=== PATIENT | female | born 1960 | race Caucasian/White ===

== ENCOUNTER 2016-12-07 12:00 | Inpatient (IN) | payer BC ==
[~2016-12-07] VITALS: Ht 165.1 cm; Wt 59.5 kg
[2016-12-07 10:59] VITALS: BP 100/52; RESP 18
[~2016-12-07 12:00] MED LIST: ASPI-535 PO; EZET1TAB9; LORA-407; OMEP10CA4
[2016-12-07] MEDS ORDERED: ASPIRIN 325 MG TAB PO STA (12:01)
[2016-12-07 12:30] LABS: BASOPHILS % 0.7 % (0.0-2.0); EOSINOPHILS # 0.1 10^3/ul (0.0-0.5); EOSINOPHILS % 1.6 % (0.0-7.0); HEMATOCRIT 37.7 % (37.0-47.0); HEMOGLOBIN 12.9 g/dl (12.0-16.0); LYMPHOCYTES # 1.8 10^3/ul (0.8-2.9); MEAN CORPUSCULAR HEMOGLOBIN 29.9 pg (29.0-33.0); MEAN CORPUSCULAR HGB CONC 34.2 g/dl (32.0-37.0); MEAN CORPUSCULAR VOLUME 87.5 fl (82.0-101.0); MEAN PLATELET VOLUME 10.6 fl (7.4-10.4); MONOCYTE # 0.4 10^3/ul (0.3-0.9); MONOCYTES % 6.7 % (0.0-11.0); NEUTROPHILS % 58.6 % (39.0-77.0); PLATELET COUNT 246 10^3/UL (140-415); RED BLOOD COUNT 4.31 10^6/ul (4.20-5.40); RED CELL DISTRIBUTION WIDTH 13.2 % (11.5-14.5); WHITE BLOOD COUNT 5.7 10^3/ul (4.8-10.8)
--- NOTE | 2016-12-07 12:46 | RADRPT ---
PROCEDURE: CT Brain without contrast. CLINICAL INDICATION: Code stroke TECHNIQUE: A CT of the brain was performed on a GE [id number] 64-slice CT scanner utilizing axial imaging from the skull base through the vertex without IV contrast. Multiplanar reformatted images were made. Images were reviewed on a PACS workstation. The CTDIvol is 45.01 mGy and the DLP is 630 .20 mGycm. One of the following 3 dose reduction techniques were used: Automated exposure control; adjustment of the mA and/or kV according to patient size; or use of iterative reconstruction technique. COMPARISON: No relevant priors FINDINGS: There is no intracranial hemorrhage, mass effect, or midline shift. No extra-axial fluid collection is seen. The ventricles and sulci are normal in size and configuration. The density of the brain is normal, and the johnson white matter differentiation appears well-preserved. The visualized scalp and calvarium are normal. The bilateral orbits are normal. The bilateral para nasal sinuses, mastoid air cells and middle ear cavities are clear. IMPRESSION: 1. No evidence of acute intracranial hemorrhage, infarcts, or acute intracranial pathology. 2. Normal noncontrast head CT. A call report was made to Kat Yang at 12/07/2016 12:44:48 PM following the completion of the examination by the undersigned. RPTAT: HDC .Jesenia Roque MD, MD Date Time Electronically viewed and signed by .Jesenia Roque MD, MD on 12/07/2016 12:45 .C/
[2016-12-07 12:51] LABS: ANION GAP 18 (8-16); BLOOD UREA NITROGEN 21 mg/dl (7-20); CALCIUM 9.8 mg/dl (8.4-10.2); CARBON DIOXIDE 27 mmol/L (21-31); CHLORIDE 100 mmol/L (97-110); CREATININE 0.64 mg/dl (0.44-1.00); GLUCOSE 105 mg/dl (70-220); POTASSIUM 3.6 mmol/L (3.5-5.1); SODIUM 141 mmol/L (135-144)
[2016-12-07 13:04] LABS: TROPONIN-I < 0.012 ng/ml (0.00-0.12)
--- NOTE | 2016-12-07 13:37 | RADRPT ---
PROCEDURE: XR Chest. CLINICAL INDICATION: Dyspnea and chest pain TECHNIQUE: AP Portable chest. COMPARISON: 10/19/2015 chest x-ray FINDINGS: The soft tissues and bones are normal. No focal infiltrates, masses, or effusions are noted. The m ediastinum and heart are normal. No pneumothorax is present. IMPRESSION: 1. No radiographic evidence for acute cardiopulmonary disease RPTAT: HDC .Jesenia Roque MD, MD Date Time Electronically viewed and signed by .Jesenia Roque MD, on 12/07/2016 13:37 .C/
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
[2016-12-07] MEDS ORDERED: ASPI-664 PO (14:07)
[2016-12-07] MEDS ORDERED: EZET1TAB9 PO (14:13)
[2016-12-07] MEDS ORDERED: LORA10CA PO (14:14)
[2016-12-07] MEDS ORDERED: OMEP10CA4 PO (14:15)
[2016-12-07] MEDS ORDERED: ACETAMINOPHEN 325 MG TAB PO PRN (16:00)
[2016-12-07] MEDS ORDERED: ONDANSETRON 4 MG INJ IV PRN ×2 (16:00→16:30)
[2016-12-07] MEDS ORDERED: DOCUSATE SODIUM 100 MG CAP PO PRN (16:30)
[2016-12-07] MEDS ORDERED: MAGNESIUM HYDROXIDE 30ML CUP PO PRN (16:30)
[2016-12-07] MEDS ORDERED: NACL 0.9% 3 ML SYG IV SCH (16:30)
[2016-12-07] MEDS ORDERED: BISACODYL (EC) 5 MG TAB PO PRN (16:30)
[2016-12-07 18:30] VITALS: TEMP 98.6
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
[2016-12-07 20:33] LABS: CREATINE KINASE 91 IU/L (23-200)
--- NOTE | 2016-12-07 20:45 | QN ---
Documentation Comment [id number] WENCESLAO KHAN MD Dec 07, 2016 20:45
[2016-12-07 20:46] LABS: CK-MB 0.72 ng/ml (0.0-2.4)
[2016-12-07 20:48] LABS: TROPONIN-I < 0.012 ng/ml (0.00-0.12)
[2016-12-07 22:00] VITALS: BP 123/76; RESP 18
[2016-12-07 22:23] VITALS: PULSE 64
[2016-12-07 22:31] VITALS: Ht 165.1 cm; Wt 59.5 kg
--- NOTE | 2016-12-07 22:31 | HP ---
DATE OF ADMISSION: 12/07/2016 HISTORY OF PRESENT ILLNESS: The patient is a 56-year-old female with a history of anxiety, history of questionable CAD who presented with left-sided weakness. The patient has been seen by telestroke neurologist and the patient claims that her symptoms are getting better. The patient's blood pressure is 120/70, hematocrit 37.7, sodium 141, potassium 3.5, BUN 21. Chest x-ray, no radiographic evidence for acute cardiopulmonary process. Brain CT scan, no evidence of acute subarachnoid hemorrhage or for fluid-attenuated intracerebral pathology. PAST MEDICAL HISTORY: Positive for CAD, dyslipidemia, dyspepsia. ALLERGIES: HISTORY NEGATIVE. MEDICATIONS: History for aspirin, Zetia, simvastatin, FAMILY HISTORY: Positive for hypertension. SOCIAL HISTORY: Negative. REVIEW OF SYSTEMS: HEENT: Unremarkable. RESPIRATORY: Unremarkable. CARDIOVASCULAR: Unremarkable. GASTROINTESTINAL: Unremarkable. EXTREMITIES: As mentioned above, left-sided weakness, getting better. NEUROLOGIC: As mentioned above. PHYSICAL EXAMINATION: GENERAL APPEARANCE: The patient is awake, alert, not in any acute respiratory distress with good pulse. VITAL SIGNS: Stable. HEENT: Head is atraumatic, normocephalic. Pupils are equal and reactive to light. NECK: Supple. There is no JVD. LUNGS: Clear. CARDIOVASCULAR: S1, S2 are normal. ABDOMEN: Soft, nontender. Bowel sounds positive. No palpable mass or hepatosplenomegaly. No guarding or rebound tenderness. EXTREMITIES: There is no cyanosis, clubbing or edema. NEUROLOGIC: The patient is awake, moving both upper and lower extremities. DATA: Laboratory data as mentioned above. IMPRESSION: 1. The patient has history of coronary artery disease. 2. Rule out transient ischemic attack, rule out cerebrovascular accident. 3. History of dyslipidemia. PLAN: 1. Continue home medications. 2. The patient will have 2D echocardiogram, carotid duplex scan, and neurology consultation. 3. Continue aspirin. Orders were done. Dictated By: Jose Miguel Cardoso MD /jody/deysi /Document#: [id number] RENATA
[2016-12-07] MEDS: SOD CHLORIDE 0.45% 1,000 ML IV SCH (23:55)
[2016-12-08] VITALS (13 sets, daily range): BP systolic 92–123; BP diastolic 52–76; PULSE 50–67; RESP 18–20
--- NOTE | 2016-12-08 00:09 | RADRPT ---
PROCEDURE: US Carotids. CLINICAL INDICATION: Transient ischemic attack TECHNIQUE: Multiple sonographic of the carotid arteries were obtained utilizing johnson scale imaging . Color and Doppler imaging was performed. The images were reviewed on a PACS workstation. COMPARISON: No prior studies are available for comparison. FINDINGS: RIGHT: CCA 92 cm/sec Prox ICA 67 cm/sec Mid ICA 59 cm/sec Dist ICA 85 cm/sec ECA 110 cm/sec ICA/CCA: 0.9 LEFT: CCA 97 cm/sec Prox ICA 61 cm/sec Mid ICA71 cm/sec Dist ICA 88 cm/sec ECA 71 cm/sec ICA/CCA: 0.9 Antegrade flow is seen within the vertebral arteries bilaterally. No significant plaque is seen with in the bilateral carotid bulbs. There is no evidence for hemodynamically significant stenosis or oc clusion is identified. IMPRESSION: 1. No evidence for hemodynamically significant stenosis - validated velocity measurements with osmani ographic measurements, velocity criteria are extrapolated from diameter data as defined by the Socie ty of Radiologists in Ultrasound Consensus Conference Radiology 2003; 229;340-346. This study does indirectly reference the measurement of the distal ICA diameter as the denominator for stenosis avelino urement. 2. Antegrade flow seen within the vertebral arteries bilaterally. RPTAT: HMVK .Oscar Hudson MD, Date Time Electronically viewed and signed by .Oscar Hudson MD, on 12/08/2016 00:08 .K/
[2016-12-08] MEDS: PANTOPRAZOLE (EC) 40 MG TAB PO SCH (06:15)
[2016-12-08] MEDS: LORATADINE 10 MG TAB PO SCH (08:50)
[2016-12-08] MEDS: HYDROCODONE/APAP (5/325) TAB PO PRN ×2 (08:51→18:20)
[2016-12-08] MEDS: ASPIRIN (EC) 81 MG TAB PO SCH (08:51)
[2016-12-08] MEDS: ENOXAPARIN 40 MG/0.4 ML SYG SC SCH (08:58)
[2016-12-08 10:29] LABS: CHOL/HDL RATIO 4.8 RATIO
--- NOTE | 2016-12-08 10:47 | PN ---
Date/Time of Note Date/Time of Note DATE: 12/08/16 TIME: 10:42 Assessment/Plan VTE Prophylaxis VTE Prophylaxis Intervention: LMWH Lines/Catheters IV Catheter Type (from Nrs): Saline Lock Assessment/Plan Chief Complaint/Hosp Course 56 y/o with 1. Left sided hemiparesis vs Stroke mimic 2. Hypercholesteremia 3 h/o CAD Plan - on ASA 81 mg - CHD pending - MRI of brain - PT/OT/Speech - ECHO pending with bubble( only bradycardia noted on Telemetry) - Carotid U/S neg for stenosis - GI/DVT prophylaxis - Neuro consult Dr Wren Problems: Subjective 24 Hr Interval Summary Free Text/Dictation Feels that left leg weakness has improved but not the left arm weakness Exam/Review of Systems Vital Signs Vitals Vital Signs Date Time Temp Pulse Resp B/P Pulse Ox O2 Delivery O2 Flow Rate FiO2 12/08/16 08:33 67 12/08/16 07:51 97.6 20 109/66 97 12/07/16 20:30 Room Air Intake and Output 12/07/16 12/07/16 12/08/16 15:00 23:00 07:00 Intake Total 120 ml 830 ml Balance 120 ml 830 ml Exam Gen:awake,alert Neck:supple CVS:bradycardia Lungs:clear to aucultate Abdomen:soft, non tender Neuro left leg 4/5 , left arm 2/5 No facial droop Results Result Diagram: 12/07/16 1220 12/07/16 1220 Results 24 hrs Laboratory Tests Test 12/07/16 12:20 12/07/16 20:00 12/08/16 09:15 White Blood Count 5.7 # Red Blood Count 4.31 Hemoglobin 12.9 Hematocrit 37.7 Mean Corpuscular Volume 87.5 Mean Corpuscular Hemoglobin 29.9 Mean Corpuscular Hemoglobin Concent 34.2 Red Cell Distribution Width 13.2 Platelet Count 246 Mean Platelet Volume 10.6 H Neutrophils % 58.6 Lymphocytes % 32.0 Monocytes % 6.7 Eosinophils % 1.6 Basophils % 0.7 Nucleated Red Blood Cells % 0.0 Neutrophils # (Manual) 3.3 Lymphocytes # 1.8 Monocytes # 0.4 Eosinophils # 0.1 Basophils # 0.0 Nucleated Red Blood Cells # 0.0 Sodium Level 141 Potassium Level 3.6 Chloride Level 100 Carbon Dioxide Level 27 Anion Gap 18 H Blood Urea Nitrogen 21 H Creatinine 0.64 Glucose Level 105 Hemoglobin A1c 5.8 Calcium Level 9.8 Troponin I < 0.012 < 0.012 Creatine Kinase 91 Creatine Kinase Index 0.8 Creatinine Kinase MB (Mass) 0.72 Triglycerides Level 114 Cholesterol Level 199 LDL Cholesterol, Calculated 135 HDL Cholesterol 41 Cholesterol/HDL Ratio 4.8 Medications Medications Current Medications Aspirin (Halfprin) 81 mg DAILY PO Last administered on 12/08/16 08:51; Admin Dose 81 MG; Start 12/08/16 at 09:00 Loratadine 10 mg 10 mg DAILY PO Last administered on 12/08/16 08:50; Admin Dose 10 MG; Start 12/08/16 at 09:00 Sodium Chloride (1/2 NS) 1,000 ml @ 40 mls/hr Q24H IV Last administered on 23:55; Admin Dose 40 MLS/HR; Start 12/07/16 at 16:19 Ondansetron HCl (Zofran Inj) 4 mg Q6H PRN IV NAUSEA AND/OR VOMITING; Start at 16:30 Acetaminophen/ Hydrocodone Bitart ([place] (5/325)) 1 tab Q6H PRN PO MODERATE PAIN LEVEL 4-6 Last administered on 12/08/16 08:51; Admin Dose 1 TAB; Start at 16:30 Docusate Sodium (Colace) 100 mg Q12H PRN PO CONSTIPATION; Start 12/07/16 at 16: 30 Magnesium Hydroxide (Milk Of Mag) 30 ml DAILY PRN PO CONSTIPATION; Start at 16:30 Bisacodyl (Dulcolax) 5 mg DAILY PRN PO CONSTIPATION; Start 12/07/16 at 16:30 Pantoprazole (Protonix Tab) 40 mg DAILY@06 PO Last administered on 12/08/16 06 :15; Admin Dose 40 MG; Start 12/08/16 at 06:00 Enoxaparin Sodium (Lovenox) 40 mg DAILY SC Last administered on 12/08/16 08:58 ; Admin Dose 40 MG; Start 12/08/16 at 09:00 BRIANNE BAHENA MD Dec 08, 2016 10:47
--- NOTE | 2016-12-08 13:23 | RADRPT ---
Echocardiogram Report ADDENDUM Patient Name: JANNY REDDY Gender: Female Date: 1960 Study Date: 08-Dec-2016 Well Cleaner: SINDY ADAME Location: [id number] Ref. Physician: WENCESLAO KHAN Quality: Good Procedures: Transthoracic echocardiogram with complete 2D, M-Mode, and doppler examination. Indications: Transient Ischemic Attack. 2D/M Mode Doppler Measurement Value Normal Ranges Measurement Value Normal Ranges LVIDd 2D 3.9 3.5 - 5.6 cm AV Peak Lam 1.1 m/sec LVIDs 2D 2.1 2.1 - 4.1 cm AV Peak PG 4.4 mmHg LVPWd 2D 1.0 0.6 - 1.1 cm LVOT Peak Lam 0.8 m/sec IVSd 2D 1.0 0.6 - 1.1 cm LVOT Peak PG 2.3 mmHg AoR Diam 2D 2.9 2.0 - 3.7 cm MV E Peak Lam 0.7 m/sec EDV 2D 66.9 cm3 MV A Peak Lam 0.5 m/sec ESV 2D 8.9 cm3 MV E/A 1.5 LA Dimen 2D 2.9 2.3 - 4.0 cm MV Decel Time 187 msec MV Decel Humphreys 4 MV E/A 1.5 TR Peak Lam 2.1 m/sec TR Peak PG 17.9 mmHg RVSP 20.0 mmHg Findings Left Ventricle: Lower limits of normal systolic function. Ejection fraction is visually estimated at 5055 %. Abnormal Diastolic Function. Right Ventricle: Normal right ventricular size. Normal right ventricular systolic function. Left Atrium: The left atrium is normal in size. Right Atrium: The right atrium is normal in size. Mitral Valve: Normal appearance of the mitral valve. Normal appearance and function of the mitral valve with trace physiologic regurgitation. Trace mitral regurgitation. Aortic Valve: Normal appearance of the aortic valve. No significant aortic stenosis or insufficiency. Tricuspid Valve: Normal appearance and function of the tricuspid valve with trace physiologic regurgitation. Normal right ventricular systolic pressure. Estimated peak PA systolic pressure 23 mmHg. Pulmonic Valve: Normal pulmonic valve appearance. Pericardium: Normal pericardium with no significant pericardial effusion. Aorta: Normal aortic root. IVC: Normal size and normal respiratory collapse consistent with normal right atrial pressure. Conclusions 1.Lower limits of normal systolic function. Ejection fraction is visually estimated at 50-55 %. Abnormal Diastolic Function. 2.Normal appearance of the mitral valve. Normal appearance and function of the mitral valve with trace physiologic regurgitation. Trace mitral regurgitation. 3.Normal appearance and function of the tricuspid valve with trace physiologic regurgitation. Normal right ventricular systolic pressure. Estimated peak PA systolic pressure 23 mmHg. 4.No bubble study performed for interpretation. Electronically Signed By: Missael Pugh 08-Dec-2016 13:32:00 -0700 [ADDENDUM] Patient Name: JANNY REDDY Study Date: 08-Dec-2016 [id number]
[2016-12-08] MEDS: SOD CHLORIDE 0.45% 1,000 ML IV SCH (18:15)
--- NOTE | 2016-12-08 20:04 | CONS ---
Date/Time of Note Date/Time of Note DATE: 12/08/16 TIME: 19:56 Assessment/Plan Assessment/Plan Chief Complaint/Hosp Course Neuro exam: AOx3, fluent speech, CN left facial numbness to temperature, pain, rest CN int, perrl 4-2 mm Motor LUE 4-3+/5 min pronator drift Sensory decreased on th eleft DTR 2, no babibski, coord OK RUE Gait was not assessed A/P: Acute ischemic CVA. MRI pending. ASA, statin. Keep euglycemic, OK elevated BP in th efirst few days up to 220/120 then obtain control. PT/OT Problems: Consultation Date/Type/Reason Admit Date/Time Dec 07, 2016 at 15:51 Type of Consultation: neurology Reason for Consultation left sided weakness and numbness Hx of Present Illness 56 y/o with PMHx of chronic migraine headache without aura x decades, almost daily; developed SOB and left sided numbness and weakness yesterday, better by now. Car US negative, C T head, ECHO WNL, MRI done no report Respiratory: shortness of breath Neurologic: focal-weakness Past Medical History Medical History: no pertinent history, angina, diabetes (no dm, hypothyroid), hypothyroid, other (migraines without aura almost daily x decades) Family History Significant Family History: no pertinent family hx Social History Alcohol Use: none Smoking Status: Former smoker Exam/Review of Systems Vital Signs Vitals Vital Signs Date Time Temp Pulse Resp B/P Pulse Ox O2 Delivery O2 Flow Rate FiO2 12/08/16 16:55 55 12/08/16 15:50 97.8 20 93/55 95 12/07/16 20:30 Room Air Intake and Output 12/07/16 12/07/16 12/08/16 15:00 23:00 07:00 Intake Total 120 ml 830 ml Balance 120 ml 830 ml Exam Constitutional: alert, oriented, well developed Psych: nl mood/affect, no complaints Head: atraumatic, normocephalic Eyes: EOMI, nl conjunctiva ENMT: nl external ears & nose Neck: non-tender, supple Respiratory: clear to auscultation, normal air movement Cardiovascular: nl pulses, regular rate and rhythm Gastrointestinal: non-tender, soft Musculoskeletal: nl extremities to inspection Results Result Diagram: 12/07/16 1220 12/07/16 1220 Results 24 hrs Laboratory Tests Test 12/07/16 20:00 12/08/16 09:15 Creatine Kinase 91 Creatine Kinase Index 0.8 Creatinine Kinase MB (Mass) 0.72 Troponin I < 0.012 Triglycerides Level 114 Cholesterol Level 199 LDL Cholesterol, Calculated 135 HDL Cholesterol 41 Cholesterol/HDL Ratio 4.8 Thyroid Stimulating Hormone (TSH) 3.490 Medications Medications Current Medications Aspirin (Halfprin) 81 mg DAILY PO Last administered on 12/08/16 08:51; Admin Dose 81 MG; Start 12/08/16 at 09:00 Loratadine 10 mg 10 mg DAILY PO Last administered on 12/08/16 08:50; Admin Dose 10 MG; Start 12/08/16 at 09:00 Sodium Chloride (1/2 NS) 1,000 ml @ 40 mls/hr Q24H IV Last administered on 18:15; Admin Dose 40 MLS/HR; Start 12/07/16 at 16:19 Ondansetron HCl (Zofran Inj) 4 mg Q6H PRN IV NAUSEA AND/OR VOMITING; Start at 16:30 Acetaminophen/ Hydrocodone Bitart ([place] (5/325)) 1 tab Q6H PRN PO MODERATE PAIN LEVEL 4-6 Last administered on 12/08/16 18:20; Admin Dose 1 TAB; Start at 16:30 Docusate Sodium (Colace) 100 mg Q12H PRN PO CONSTIPATION; Start 12/07/16 at 16: 30 Magnesium Hydroxide (Milk Of Mag) 30 ml DAILY PRN PO CONSTIPATION; Start at 16:30 Bisacodyl (Dulcolax) 5 mg DAILY PRN PO CONSTIPATION; Start 12/07/16 at 16:30 Pantoprazole (Protonix Tab) 40 mg DAILY@06 PO Last administered on 12/08/16 06 :15; Admin Dose 40 MG; Start 12/08/16 at 06:00 Enoxaparin Sodium (Lovenox) 40 mg DAILY SC Last administered on 12/08/16 08:58 ; Admin Dose 40 MG; Start 12/08/16 at 09:00 PAM GONSALES MD Dec 08, 2016 20:04
[2016-12-08] MEDS: ATORVASTATIN 40 MG TAB PO SCH (20:24)
[2016-12-09] VITALS (11 sets, daily range): BP systolic 93–118; BP diastolic 59–70; PULSE 49–58; RESP 17–20
[2016-12-09] MEDS: PANTOPRAZOLE (EC) 40 MG TAB PO SCH (05:21)
[2016-12-09] MEDS: LORATADINE 10 MG TAB PO SCH (09:03)
[2016-12-09] MEDS: ASPIRIN (EC) 81 MG TAB PO SCH (09:03)
[2016-12-09] MEDS: HYDROCODONE/APAP (5/325) TAB PO PRN ×2 (09:03→23:08)
[2016-12-09] MEDS: ENOXAPARIN 40 MG/0.4 ML SYG SC SCH (09:09)
--- NOTE | 2016-12-09 12:38 | RADRPT ---
PROCEDURE: MRI Brain without contrast. CLINICAL INDICATION: Stroke, neurologic deficit TECHNIQUE: Multiplanar MRI of the brain without contrast was performed on a 3.0 T scanner with the following sequences obtained: T1-weighted, T2-weighted/FLAIR, diffusion weighted (with ADC map), GR E. COMPARISON: CT brain 12/07/2016 FINDINGS: No acute/recent ischemic infarction or intracranial hemorrhage / blood degradation products are iden tified. No extra-axial fluid collection is seen. There is no mass effect. No midline shift is identified. The ventricles and sulci are within normal limits for size and configuration. A couple of minimal of increased T2-weighted FLAIR signal intensity are seen in the deep white matte r which are nonspecific. Flow voids are identified in the proximal intracranial arteries and dural sinuses suggesting patency . The mastoid air cells and paranasal sinuses are grossly clear. IMPRESSION: 1. No evidence of acute intracranial pathology. 2. Minimal nonspecific white matter changes, possibly reflecting chronic small vessel ischemic vásquez ges. RPTAT: VV .Esdras Porter MD, MD Date Time Electronically viewed and signed by .Esdras Porter MD, on 12/09/2016 12:38 .O/
--- NOTE | 2016-12-09 13:48 | PN ---
Date/Time of Note Date/Time of Note DATE: 12/09/16 TIME: 13:46 Assessment/Plan VTE Prophylaxis VTE Prophylaxis Intervention: LMWH Lines/Catheters IV Catheter Type (from Nrs): Peripheral IV Assessment/Plan Chief Complaint/Hosp Course 56 y/o with 1.Left sided hemiparesis vs Stroke mimic 2. Hypercholesteremia 3 h/o CAD Plan - on ASA 81 mg / statin - MRI of brain negative for intracranial pathology - Pending PT/OT/Speech - ECHO negative for thrombus - Carotid U/S neg for stenosis - GI/DVT prophylaxis - Spoke to Dr Wren Problems: Subjective 24 Hr Interval Summary Free Text/Dictation Pt says that weakness in left arm is improving Exam/Review of Systems Vital Signs Vitals Vital Signs Date Time Temp Pulse Resp B/P Pulse Ox O2 Delivery O2 Flow Rate FiO2 12/09/16 12:24 55 12/09/16 12:11 98.5 18 93/62 97 12/07/16 20:30 Room Air Intake and Output 12/08/16 12/08/16 12/09/16 15:00 23:00 07:00 Intake Total 1440 ml 720 ml Balance 1440 ml 720 ml Exam Constitutional: alert Head: normocephalic Eyes: nl conjunctiva Neck: supple Respiratory: clear to auscultation Cardiovascular: regular rate and rhythm Gastrointestinal: non-tender, soft Musculoskeletal: nl extremities to inspection Neurological: focal weakness, nl speech, other (weakness on left arm improving) Results Result Diagram: 12/07/16 1220 12/07/16 1220 Medications Medications Current Medications Aspirin (Halfprin) 81 mg DAILY PO Last administered on 12/09/16 09:03; Admin Dose 81 MG; Start 12/08/16 at 09:00 Loratadine 10 mg 10 mg DAILY PO Last administered on 12/09/16 09:03; Admin Dose 10 MG; Start 12/08/16 at 09:00 Sodium Chloride (1/2 NS) 1,000 ml @ 40 mls/hr Q24H IV Last administered on 18:15; Admin Dose 40 MLS/HR; Start 12/07/16 at 16:19 Ondansetron HCl (Zofran Inj) 4 mg Q6H PRN IV NAUSEA AND/OR VOMITING; Start at 16:30 Acetaminophen/ Hydrocodone Bitart ([place] (5/325)) 1 tab Q6H PRN PO MODERATE PAIN LEVEL 4-6 Last administered on 12/09/16 09:03; Admin Dose 1 TAB; Start at 16:30 Docusate Sodium (Colace) 100 mg Q12H PRN PO CONSTIPATION; Start 12/07/16 at 16: 30 Magnesium Hydroxide (Milk Of Mag) 30 ml DAILY PRN PO CONSTIPATION; Start at 16:30 Bisacodyl (Dulcolax) 5 mg DAILY PRN PO CONSTIPATION; Start 12/07/16 at 16:30 Pantoprazole (Protonix Tab) 40 mg DAILY@06 PO Last administered on 12/09/16 05 :21; Admin Dose 40 MG; Start 12/08/16 at 06:00 Enoxaparin Sodium (Lovenox) 40 mg DAILY SC Last administered on 12/09/16 09:09 ; Admin Dose 40 MG; Start 12/08/16 at 09:00 Atorvastatin Calcium (Lipitor) 40 mg HS PO Last administered on 12/08/16 20:24 ; Admin Dose 40 MG; Start 12/08/16 at 21:00 BRIANNE BAHENA MD Dec 09, 2016 13:48
[2016-12-09] MEDS: SOD CHLORIDE 0.45% 1,000 ML IV SCH (17:20)
[2016-12-09] MEDS: ATORVASTATIN 40 MG TAB PO SCH (20:43)
--- NOTE | 2016-12-09 21:44 | CONS ---
Date/Time of Note Date/Time of Note DATE: 12/09/16 TIME: 21:40 Consult Date/Type/Reason Admit Date/Time Dec 07, 2016 at 15:51 Initial Consult Date Type of Consultation: neurology Subjective Symptoms resolved, no complaints, MRI WNL Objective Vital Signs Date Time Temp Pulse Resp B/P Pulse Ox O2 Delivery O2 Flow Rate FiO2 12/09/16 20:09 55 12/09/16 20:00 98.4 17 118/66 100 12/07/16 20:30 Room Air Intake and Output 12/08/16 12/08/16 12/09/16 15:00 23:00 07:00 Intake Total 1440 ml 720 ml Balance 1440 ml 720 ml Results/Medications Result Diagram: 12/07/16 1220 12/07/16 1220 Medications Current Medications Aspirin (Halfprin) 81 mg DAILY PO Last administered on 12/09/16 09:03; Admin Dose 81 MG; Start 12/08/16 at 09:00 Loratadine 10 mg 10 mg DAILY PO Last administered on 12/09/16 09:03; Admin Dose 10 MG; Start 12/08/16 at 09:00 Sodium Chloride (1/2 NS) 1,000 ml @ 40 mls/hr Q24H IV Last administered on 17:20; Admin Dose 40 MLS/HR; Start 12/07/16 at 16:19 Ondansetron HCl (Zofran Inj) 4 mg Q6H PRN IV NAUSEA AND/OR VOMITING Last administered on 12/09/16 14:10; Admin Dose 4 MG; Start 12/07/16 at 16:30 Acetaminophen/ Hydrocodone Bitart ([place] (5/325)) 1 tab Q6H PRN PO MODERATE PAIN LEVEL 4-6 Last administered on 12/09/16 09:03; Admin Dose 1 TAB; Start at 16:30 Docusate Sodium (Colace) 100 mg Q12H PRN PO CONSTIPATION; Start 12/07/16 at 16: 30 Magnesium Hydroxide (Milk Of Mag) 30 ml DAILY PRN PO CONSTIPATION; Start at 16:30 Bisacodyl (Dulcolax) 5 mg DAILY PRN PO CONSTIPATION; Start 12/07/16 at 16:30 Pantoprazole (Protonix Tab) 40 mg DAILY@06 PO Last administered on 12/09/16 05 :21; Admin Dose 40 MG; Start 12/08/16 at 06:00 Enoxaparin Sodium (Lovenox) 40 mg DAILY SC Last administered on 12/09/16 09:09 ; Admin Dose 40 MG; Start 12/08/16 at 09:00 Atorvastatin Calcium (Lipitor) 40 mg HS PO Last administered on 12/09/16 20:43 ; Admin Dose 40 MG; Start 12/08/16 at 21:00 Assessment/Plan Chief Complaint/Hosp Course Neuro exam: AOx3, fluent speech, CN int, perrl 4-2 mm Motor 5/5 Sensory normal DTR 2, no babibski, coord [place] RUE Gait was not assessed 56 y/o with PMHx of chronic migraine headache without aura x decades, almost daily; developed SOB and left sided numbness and weakness yesterday, resolved by now over more than 24h. Car US negative, CT head, ECHO, MRI done WNL. Probably lacunar CVA?? continue ASA, statin, OK to d/c Problems: PAM GONSALES MD Dec 09, 2016 21:44
[2016-12-10] VITALS (9 sets, daily range): BP systolic 96–112; BP diastolic 58–68; PULSE 54–73; RESP 17–19
[2016-12-10] MEDS: PANTOPRAZOLE (EC) 40 MG TAB PO SCH (05:18)
[2016-12-10] MEDS: LORATADINE 10 MG TAB PO SCH (08:13)
[2016-12-10] MEDS: ASPIRIN (EC) 81 MG TAB PO SCH (08:13)
[2016-12-10] MEDS: ENOXAPARIN 40 MG/0.4 ML SYG SC SCH (08:16)
--- NOTE | 2016-12-10 12:20 | PN ---
Date/Time of Note Date/Time of Note DATE: 12/10/16 TIME: 12:19 Assessment/Plan VTE Prophylaxis VTE Prophylaxis Intervention: SCD's Lines/Catheters IV Catheter Type (from Nrsg): Peripheral IV Assessment/Plan Chief Complaint/Hosp Course 56 y/o with 1.Left sided hemiparesis vs Stroke mimic 2. Hypercholesteremia 3 h/o CAD Plan - on ASA 81 mg / statin - MRI of brain negative for intracranial pathology - ECHO negative for thrombus - Carotid U/S neg for stenosis - GI/DVT prophylaxis - Spoke to Dr Wren > d/c today with home PT/OT Problems: Subjective 24 Hr Interval Summary Free Text/Dictation Pt feeling a lot better today Weakness in left arm improved Exam/Review of Systems Vital Signs Vitals Vital Signs Date Time Temp Pulse Resp B/P Pulse Ox O2 Delivery O2 Flow Rate FiO2 12/10/16 12:14 97.4 73 17 96/58 95 12/07/16 20:30 Room Air Intake and Output 12/09/16 12/09/16 12/10/16 15:00 23:00 07:00 Intake Total 840 ml 300 ml Balance 840 ml 300 ml Results Result Diagram: 12/07/16 1220 12/07/16 1220 Medications Medications Current Medications Aspirin (Halfprin) 81 mg DAILY PO Last administered on 12/10/16 08:13; Admin Dose 81 MG; Start 12/08/16 at 09:00 Loratadine 10 mg 10 mg DAILY PO Last administered on 12/10/16 08:13; Admin Dose 10 MG; Start 12/08/16 at 09:00 Sodium Chloride (1/2 NS) 1,000 ml @ 40 mls/hr Q24H IV Last administered on 17:20; Admin Dose 40 MLS/HR; Start 12/07/16 at 16:19 Ondansetron HCl (Zofran Inj) 4 mg Q6H PRN IV NAUSEA AND/OR VOMITING Last administered on 12/09/16 14:10; Admin Dose 4 MG; Start 12/07/16 at 16:30 Acetaminophen/ Hydrocodone Bitart ([place] (5/325)) 1 tab Q6H PRN PO MODERATE PAIN LEVEL 4-6 Last administered on 12/09/16 23:08; Admin Dose 1 TAB; Start at 16:30 Docusate Sodium (Colace) 100 mg Q12H PRN PO CONSTIPATION; Start 12/07/16 at 16: 30 Magnesium Hydroxide (Milk Of Mag) 30 ml DAILY PRN PO CONSTIPATION; Start at 16:30 Bisacodyl (Dulcolax) 5 mg DAILY PRN PO CONSTIPATION; Start 12/07/16 at 16:30 Pantoprazole (Protonix Tab) 40 mg DAILY@06 PO Last administered on 12/10/16 05 :18; Admin Dose 40 MG; Start 12/08/16 at 06:00 Enoxaparin Sodium (Lovenox) 40 mg DAILY SC Last administered on 12/10/16 08:16 ; Admin Dose 40 MG; Start 12/08/16 at 09:00 Atorvastatin Calcium (Lipitor) 40 mg HS PO Last administered on 12/09/16 20:43 ; Admin Dose 40 MG; Start 12/08/16 at 21:00 BRIANNE BAHENA MD Dec 10, 2016 12:20
--- NOTE | 2016-12-10 12:23 | PDOCDIS ---
Discharge Instructions DIAGNOSIS Discharge Diagnosis Possible Lacunar stroke CONDITION Patient Condition: Fair HOME CARE INSTRUCTIONS: Diet Instructions: Low Fat /CholesterolSpecial Diet: LOW FAT/ LOW CHOLESTEROL ACTIVITY: Activity Restrictions: Avoid heavy lifting Avoid Heavy Housework FOLLOW UP/APPOINTMENTS Follow-up Plan f/u Dr Wren in 2 weeks f/u PCP in 1 week Return to ER if has severe headache, focal weakness, facial droop BRIANNE BAHENA MD Dec 10, 2016 12:23
[2016-12-10] MEDS ORDERED: ASPI-664 PO (12:24)
[2016-12-10] MEDS ORDERED: ATOR40TA68 PO (12:24)
--- NOTE | 2016-12-11 06:54 | DS ---
DATE OF ADMISSION: 12/07/2016 DATE OF DISCHARGE: 12/10/2016 HISTORY OF PRESENT ILLNESS: This is a 56-year-old with a history of anxiety, questionable CAD, who presented with left-sided weakness to the emergency department. Patient had been seen by . On admission, patient was noted to have weakness of the left upper and lower extremity, did not have any facial droop. Patient had a CT of the head that was negative. Patient was seen by the tele-radiologist, Dr. Roney Thakur, and was offered tPA; however, denied tPA. According to the patient, she had a chest pain at 11:00 and a left hemisensory abnormality at 10:00, and then getting bad news about a family member, then having dyspnea and chest pain and, after that, she felt that half of the body on the left was asleep. HOSPITAL COURSE: During the hospital course, patient had serial troponins that were negative, had echocardiogram that showed an EF of 50 to 55 percent, abnormal diastolic function, normal appearance of mitral valve, normal appearance and function of tricuspid valve. Patient was started on aspirin and statin. Patient was seen by Dr. Solano with neurology consultation. Carotid ultrasound was done that was negative. MRI of the brain was done that was negative for any acute intracranial abnormality, and the patient's weakness was improving. On the left, patient was able to move her left leg, and the left upper extremity weakness was also improving. Patient was seen by PT and OT and was cleared for discharge home. As per Dr. Solano, patient is stable to discharge home on aspirin and statin. FINAL DISCHARGE DIAGNOSES: 1. Possible lacunar stroke. 2. Dyslipidemia. 3. Questionable history of dyspepsia. DISCHARGE INSTRUCTIONS: Patient was instructed to follow with PCP in 1 week and with Neurology in about 2 weeks, and patient was instructed to return to ER if she has headache, focal neurological deficit, or any facial droop. DISCHARGE MEDICATIONS: Aspirin enteric-coated 81 mg p.o. daily, Lipitor 40 mg p.o. at bedtime, and continue with home medications, which are loratadine 10 mg p.o. daily and Pepcid. Dictated By: MD SHYANN Colunga/jody/deysi /Document#: [id number]
== END 2016-12-10 17:51 | disposition home health service (06) | DRG 65 ==
LOC: E/R 12:00 → MS4 15:51
PROVIDERS: ADMIT Internal Medicine Nephrology; ATTEND Internal Medicine Nephrology
DX: I63.9 Cerebral infarction, unspecified (principal); G81.94 Hemiplegia, unspecified affecting left nondominant side; E78.5 Hyperlipidemia, unspecified; Z79.82 Long term (current) use of aspirin; I25.10 Atherosclerotic heart disease of native coronary artery without angina pectoris; Z82.49 Family history of ischemic heart disease and other diseases of the circulatory system
CPT/HCPCS: 36415; 70450; 70551; 71010; 80048; 80061; 82550; 82553; 83036; 84443; 84484; 85025; 92507; 92523; 92610; 93005; 93306; 93880; 97163; J1650; J2405